=== PATIENT | male | born 1950 | race Caucasian/White ===

== ENCOUNTER → 2016-10-25 | Outpatient (CLI) | payer BC ==
[~2016-10-25] MED LIST: AMOX875T PO; ASPI1TAB48 PO; ATOR10TA82 PO; GLGKIT; HYDR25TA4 PO; INSPMPNVLG; LEVO150T PO; LSNP/30 PO
[2016-10-25 15:03] LABS: THYROID STIMULATING HORMONE 1.16 uIu/ml (0.300-4.500)
[2016-10-25 15:05] LABS: ESTIMATED AVERAGE GLUCOSE 177 mg/dl; HA1C FLAG Normal (Normal)
[2016-10-25 15:58] LABS: RATIO 4.8 mcg/mg (0-30.0)
== END | disposition home or self-care (01) ==
LOC: C.LAB1850 13:35
PROVIDERS: ATTEND Internal Medicine Endocrinology, Diabetes & Metabolism
DX: E10.649 Type 1 diabetes mellitus with hypoglycemia without coma (principal); E03.9 Hypothyroidism, unspecified; E78.5 Hyperlipidemia, unspecified; I10 Essential (primary) hypertension; E55.9 Vitamin D deficiency, unspecified; E06.3 Autoimmune thyroiditis; Z86.31 Personal history of diabetic foot ulcer; E04.2 Nontoxic multinodular goiter; R20.0 Anesthesia of skin

== ENCOUNTER → 2017-02-07 | Outpatient (CLI) | payer BC ==
[~2017-02-07] MED LIST changes: -ATOR10TA82 PO; +ATOR10TA88 PO
[2017-02-08 07:11] LABS: ESTIMATED AVERAGE GLUCOSE 174 mg/dl; HA1C FLAG Normal (Normal)
== END | disposition home or self-care (01) ==
LOC: C.LAB1850 16:34
PROVIDERS: ATTEND Internal Medicine Endocrinology, Diabetes & Metabolism
DX: E78.5 Hyperlipidemia, unspecified (principal); E10.9 Type 1 diabetes mellitus without complications

== ENCOUNTER → 2017-05-18 | Outpatient (CLI) | payer BC ==
[~2017-05-18] MED LIST changes: +ATOR10TA82 PO; -ATOR10TA88 PO
[2017-05-18 12:25] LABS: ESTIMATED AVERAGE GLUCOSE 163 mg/dl; HA1C FLAG Normal (Normal)
== END | disposition home or self-care (01) ==
LOC: C.LAB1850 11:21
PROVIDERS: ATTEND Internal Medicine Endocrinology, Diabetes & Metabolism
DX: E10.9 Type 1 diabetes mellitus without complications (principal)

== ENCOUNTER → 2017-10-17 | Outpatient (CLI) | payer BC ==
[~2017-10-17] MED LIST changes: +LISI30TA3 PO; -LSNP/30 PO
[2017-10-17 15:39] LABS: ALBUMIN 3.3 gm/dl (3.4-5.0); ALT/SGPT 46 U/L (12-78); AST/SGOT 34 U/L (15-37); BLOOD UREA NITROGEN 16 mg/dl (7-18); CALCIUM 8.5 mg/dl (8.5-10.1); CARBON DIOXIDE 32 mmol/L (21-32); CHOLESTEROL 88 mg/dl (0-200); CREATININE 1.18 mg/dl (0.60-1.40); GLUCOSE 178 mg/dl (70-99); POTASSIUM 4.3 mmol/L (3.5-5.1); SODIUM 139 mmol/L (136-145)
[2017-10-17 15:49] LABS: ALKALINE PHOSPHATASE 118 U/L (45-117); LDL CHOLESTEROL CALCULATED 42 mg/dl; TOTAL PROTEIN 6.8 gm/dl (6.4-8.2)
[2017-10-18 07:24] LABS: HEMOGLOBIN A1C 7.9 % (4.5-5.6)
== END | disposition home or self-care (01) ==
LOC: C.LAB1850 14:04
PROVIDERS: ATTEND Internal Medicine Endocrinology, Diabetes & Metabolism
DX: E78.5 Hyperlipidemia, unspecified (principal); E03.9 Hypothyroidism, unspecified; E04.2 Nontoxic multinodular goiter; E10.9 Type 1 diabetes mellitus without complications; E55.9 Vitamin D deficiency, unspecified

== ENCOUNTER → 2017-10-19 | Outpatient (CLI) | payer BC ==
--- NOTE | 2017-10-19 12:45 | DIAGNOSTIC IMAGING REPORT ---
SOFT TISS HEAD/NECK-THYROID HISTORY: Multinodular thyroid E04.2 Multiple thyroid [id number] COMPARISON: 10/30/2014 FINDINGS: Right lobe: Maximum dimension 4.6 cm. Heterogeneous internal architecture with no well-defined nodule. Left lobe: Maximum dimension 4.0 cm. Heterogeneous internal architecture with no well-defined nodule Isthmus: No nodules. IMPRESSION: Diffusely heterogeneous thyroid with no well-defined nodular density. This is unchanged compared to the prior study. The above report was generated using voice recognition software. It may contain grammatical, syntax or spelling errors. Electronically signed by: Derrek Bonner M.D. 10/19/2017 12:44 PM Dictated Date/Time: 10/19/2017 12:38 PM
== END | disposition home or self-care (01) ==
LOC: C.ULTRBC 12:15
PROVIDERS: ATTEND Internal Medicine Endocrinology, Diabetes & Metabolism
DX: E04.2 Nontoxic multinodular goiter (principal)